=== PATIENT | female | born 1975 | race Caucasian/White ===

== ENCOUNTER 2016-12-06 08:42 | Emergency (ER) | payer OTHER ==
--- NOTE | 2016-12-06 09:11 | PDOC ---
History of Present Illness - General Chief Complaint: Substance Abuse Stated Complaint: DETOX Past History - Past Medical History Allergies/Adverse Reactions: Allergies Allergy/AdvReac Type Severity Reaction Status Date / Time No Known Allergies Allergy Verified 12/06/16 09:04 Other medical history: denies - Psycho/Social/Smoking Cessation Hx Anxiety: No Suicidal Ideation: No Smoking History: Current every day smoker Have you smoked in the past 12 months: Yes Number of Cigarettes Smoked Daily: 20 Information on smoking cessation initiated: No Hx Alcohol Use: Yes Drug/Substance Use Hx: Yes (cocaine , heroin) Substance Use Type: None *Physical Exam - Vital Signs Last Vital Signs Temp Pulse Resp BP Pulse Ox 97.4 F L 89 20 139/80 98 12/06/16 09:00 12/06/16 09:00 12/06/16 09:00 12/06/16 09:00 12/06/16 09:00 ED Treatment Course - LABORATORY CBC & Chemistry Diagram: 12/06/16 10:10 12/06/16 10:10 *DC/Admit/Observation/Transfer Diagnosis at time of Disposition: Drug abuse and dependence - Discharge Dispostion Disposition: I.P. ALCOHOL/SUBS ABUSE REHAB Condition at time of disposition: Fair Admit: No - Patient Instructions Printed Discharge Instructions: DI for Drug Abuse and Drug Addiction Additional Instructions: Please utilize all resources to avoid drug use.
[2016-12-06 09:14] VITALS: BP 139/80; PULSE 89; TEMP 97.4; BMI 68.3
--- NOTE | 2016-12-06 09:50 | PDOC ---
History of Present Illness - General Chief Complaint: Substance Abuse Stated Complaint: DETOX Time Seen by Provider: 12/06/16 09:31 History Source: Patient Exam Limitations: No Limitations - History of Present Illness Initial Comments: 12/06/16 09:47 41-year-old female presents to the emergency room seeking drug detox program. Patient states is currently abusing pain medication oxycodone, heroin, and crack. Patient states is having chills and is generally uncomfortable. Patient has no complaints of GI discomfort, chest pain, shortness of breath, headache, or dizziness. Patient states would go to [facility] detox if accepted. Patient denies other medical history at this time. Timing/Duration: constant, getting worse Severity: moderate Associated Symptoms: reports: fever/chills (chills), loss of appetite, weakness Past History - Past Medical History Allergies/Adverse Reactions: Allergies Allergy/AdvReac Type Severity Reaction Status Date / Time No Known Allergies Allergy Verified 12/06/16 09:04 Other medical history: denies - Reproductive History LMP Normal: Yes Is Patient Now?: No - Psycho/Social/Smoking Cessation Hx Anxiety: No Suicidal Ideation: No Smoking History: Current every day smoker Have you smoked in the past 12 months: Yes Number of Cigarettes Smoked Daily: 20 Information on smoking cessation initiated: No Hx Alcohol Use: Yes Drug/Substance Use Hx: Yes (cocaine , heroin) Substance Use Type: None Patient Lives Alone: No Lives with/in: parents (mother) Review of Systems - Review of Systems Able to Perform ROS?: Yes Constitutional: Yes: Symptoms Reported, Chills, Loss of Appetite, Weakness HEENTM: No: Symptoms Reported Respiratory: No: Symptoms reported Cardiac (ROS): No: Symptoms Reported ABD/GI: Yes: Abdominal cramping : No: Symptoms Reported Musculoskeletal: Yes: Muscle Pain ( generalized) Integumentary: No: Symptoms Reported Neurological: No: Symptoms reported Endocrine: No: Symptoms Reported Hematologic/Lymphatic: No: Symptoms Reported *Physical Exam - Vital Signs Last Vital Signs Temp Pulse Resp BP Pulse Ox 97.4 F L 89 20 139/80 98 12/06/16 09:00 12/06/16 09:00 12/06/16 09:00 12/06/16 09:00 12/06/16 09:00 - Physical Exam General Appearance: Yes: Nourished, Appropriately Dressed. No: Apparent Distress HEENT: positive: EOMI, DRU. negative: Pale Conjunctivae Respiratory/Chest: positive: Lungs Clear, Normal Breath Sounds. negative: Respiratory Distress, Accessory Muscle Use Cardiovascular: positive: Regular Rhythm, Regular Rate. negative: Murmur Gastrointestinal/Abdominal: positive: Soft. negative: Tenderness Integumentary: positive: Normal Color, Warm, Moist Neurologic: positive: Motor Strength 5/5 (ambulatory). negative: Normal Mood/ Affect (irritable) ED Treatment Course - LABORATORY CBC & Chemistry Diagram: 12/06/16 10:10 12/06/16 10:10 Medical Decision Making - Medical Decision Making 12/06/16 09:52 Patient seeking drug detox program. Patient states has been using for numerous years and has tried different programs. Patient has normal vital signs but does piloerection, frequent yawning, and appears drowsy. Labs and EKG to be done including a drug tox and urinalysis 12/06/16 13:13 Patient awake and now ambulatory and requesting to leave. Patient wants rehabilitation. Case discussed via phone with intake nurse who accepted patient although there is one female that needs discharge prior to accepting this patient. Patient may be sent over via security. Patient will have repeat vitals then sent over to [facility]. *DC/Admit/Observation/Transfer Diagnosis at time of Disposition: Drug abuse and dependence - Discharge Dispostion Disposition: I.P. ALCOHOL/SUBS ABUSE REHAB - Patient Instructions Printed Discharge Instructions: DI for Drug Abuse and Drug Addiction Additional Instructions: Please utilize all resources to avoid drug use.
[2016-12-06 10:36] LABS: BASOPHIL 0.3 % (0-2.0); EOSINOPHIL 0.1 % (0-4.5); MCH 27.7 pg (25.7-33.7); MCHC 32.8 g/dl (32.0-36.0); MEAN CELL VOLUME 84.5 fl (80-96); MEAN PLT VOLUME 8.1 fl (7.5-11.1); NEUTROPHILS 66.2 % (42.8-82.8); PLATELET COUNT 218 K/MM3 (134-434); RDW 15.2 % (11.6-15.6)
[2016-12-06 10:55] LABS: ALBUMIN 3.7 g/dl (3.4-5.0); ANION GAP 8 (8-16); CALCIUM 9.2 mg/dL (8.5-10.1); CO2 24 mmol/L (21-32); CREATININE 0.9 mg/dL (0.55-1.02); GLUCOSE,RANDOM 91 mg/dL (74-106); MAGNESIUM 2.4 mg/dL (1.8-2.4); SGOT/AST 19 U/L (15-37); SGPT/ALT 26 U/L (12-78); TOT PROT 7.5 g/dl (6.4-8.2)
[2016-12-06 11:01] LABS: ALK PHOS 57 U/L (45-117); BILIRUBIN,TOTAL 0.3 mg/dL (0.2-1.0)
[2016-12-06 11:35] LABS: URINE MARIJUANA THC NEGATIVE ng/ml (CUTOFF=50)
[2016-12-06 11:50] LABS: URINE APPEARANCE SLCLOUDY; URINE BILIRUBIN NEGATIVE (NEGATIVE); URINE BLOOD NEGATIVE (NEGATIVE); URINE COLOR LTYELLOW; URINE GLUCOSE (UA) NEGATIVE (NEGATIVE); URINE KETONE TRACE (NEGATIVE); URINE LEUK ESTERASE NEGATIVE (NEGATIVE); URINE NITRITE NEGATIVE (NEGATIVE); URINE PROTEIN NEGATIVE (NEGATIVE); URINE UROBILINOGEN NEGATIVE E.U./dl (0.2-1.0)
[2016-12-06] MEDS ORDERED: SODIUM CHLORIDE 1,000 ML IV STA (12:31)
--- NOTE | 2016-12-06 15:28 | EKG ---
Test Reason : Blood Pressure : / mmHG Vent. Rate : 085 BPM Atrial Rate : 085 BPM P-R Int : 164 ms QRS Dur : 094 ms QT Int : 368 ms P-R-T Axes : 036 -41 -03 degrees QTc Int : 437 ms NORMAL SINUS RHYTHM LEFT AXIS DEVIATION MINIMAL VOLTAGE CRITERIA FOR LVH, MAY BE NORMAL VARIANT ABNORMAL ECG NO PREVIOUS ECGS AVAILABLE Confirmed by SHERIDAN WOODARD MD ([id number]) on 12/06/2016 3:28:07 PM Referred By: Confirmed By:SHERIDAN WOODARD MD
== END 2016-12-06 13:37 | disposition other institution (70) ==
LOC: JER 08:42
PROC: 3E0337Z Introduction of Electrolytic and Water Balance Substance into Peripheral Vein, Percutaneous Approach (ICD-10-PCS; principal; 2016-12-06)
DX: F11.20 Opioid dependence, uncomplicated (principal); F14.20 Cocaine dependence, uncomplicated
CPT/HCPCS: 36415; 80053; 80307; 81003; 83735; 84703; 85025; 93005; 93010; 99283-25